=== PATIENT | male | born 1950 | race Caucasian/White ===

== ENCOUNTER 2023-08-02 20:06 | Emergency (ER) | payer OTHER, MEDICARE, SELFPAY ==
[2023-08-02] VITALS (32 sets, daily range): BP systolic 129–170; BP diastolic 50–81; PULSE 46–69; RESP 16; TEMP 36.7; O2SAT 92–98
--- NOTE | 2023-08-02 20:00 | RT.EKG_ITS ---
APPROVED REPORT Exam: Resting ECG Reason for Exam: dizzy Patient Location: E HR:58 bpm ECG Measurements Heart Rate 58 AXIS MA 199 P 39 QRSd 87 QRS -7 QT 444 T 26 QTc 429 Conclusion Sinus bradycardia...rate< 60 Atrial premature complex...SV complex w/ short R-R interval
--- NOTE | 2023-08-02 20:30 | DI.CT_ITS ---
Exam(s) CT HEAD WO EXAM: CT HEAD WO CLINICAL HISTORY: dizziness. TECHNIQUE: Imaging Protocol: Axial computed tomography images with coronal and sagittal reformatted images were created and reviewed COMPARISON: No exams were available for comparison FINDINGS: Ventricles and Extra axial spaces: Normal in size and morphology for the patient's age. Hemorrhage: None. Cerebral parenchyma: There is no evidence of an acute territorial infarct. There are areas of decrea sed attenuation in the white matter suggestive of small vessel ischemic disease. Midline shift: None. Brainstem/Cerebellum: Normal. Calvarium: Normal. Visualized Paranasal sinuses/Mastoids: There findings of chronic sinusitis involving the left maxilla ry sinus. The remaining visualized paranasal sinuses are clear as are the mastoid air cells. Soft Tissues: Unremarkable. IMPRESSION: No acute intracranial process. RADIATION DOSE DELIVERED: 731.11mGy.cm Total DLP DATA REPOSITORY: All CT scans at this facility are submitted to the National Radiology Data Registry (NRDR) Dose Index Registry (DIR) with the [employer] (ACR). RADIATION OPTIMIZATION: All CT scans at this facility use at least one of these dose optimization te chniques: automated exposure control; mA and/or kV adjustment per patient size (includes targeted exa ms where dose is matched to clinical indication); or iterative reconstruction.
--- NOTE | 2023-08-02 20:36 | ED.GENADUL_ITS ---
Discharge Plan Disposition Patient Disposition: Home Condition: Improving Discharge Details Clinical Impression: Pre-syncope, Orthostatic hypotension, Adverse effect of beta-jazmín, Acute hypokalemia Primary Care Provider: [facility] ED Provider: Jose Manuel Sanchez Meds and New Rx's Prescriptions: Continued hydrochlorothiazide 12.5 MG tablet 12.5 mg PO DAILY Qty: 90 aspirin [Aspir-81] 81 MG tablet,delayed release (DR/EC) 81 mg PO DAILY pravastatin 10 MG tablet 10 mg PO QPM Discharge Instructions Instructions: Hypokalemia (ED), Near Syncope (ED) Discharge Data Discharge Physician: Jose Manuel Sanchez Medical Decision Making MDM: Summary: Patient presents to the emergency department stating that he was having episodes of dizziness for the last month but he denies any pain taking twice the metoprolol. Here in the emergency department his heart rate has been in the 50s along he is not experiencing any dizziness. IV fluids given labs were obtained which were only remarkable for hypokalemia. He was given potassium IV and p.o. He feels better Advised to just take the 12.5 mg of metoprolol instead of the 75 mg that he was taking by mistake for years 2 bottles that were sent by the [facility] Data Review Analysis All the data on this patient was reviewed by me including laboratory and imaging studies as well as bedside studies performed by me Independent review of Studies Imaging Chest x-ray was unremarkable Lab: Labs show hypokalemia and mild elevation of creatinine at 1.4 Risk Stratification: Patient most likely with dizziness due to symptomatic bradycardia to to metoprolol toxicity will be discharged home in a stable he was given potassium for hypokalemia feels much better Differential Diagnosis: 1. Symptomatic bradycardia 2.metoprolol toxicity 3. Acute coronary syndrome 4. Dehydration 5. Consultants: Shared disposition: Patient very eager to go home since he instructions he says he feels better and will follow up with his primary care doctor. Impression: Medical Records Medical records reviewed: Yes I reviewed the patient's medical records. Lab Data Lab results reviewed: Yes I reviewed the patient's lab results. ECG Data Attestation: I personally reviewed and interpreted this ECG (s) as follows: Prior ECG tracings: not available for review Interpretation: Sinus bradycardia with a heart rate of [address]-T changes HPI General Date/Time Provider Initiated Documentation: 08/02/23 20:36 . HPI Narrative: Patient who is a [place] [employer] who presented to the emergency department stating that for the last month he has been having episodes of dizziness specially when he bends over and gets up. States that he feels tunnel vision and things kind of try to blackout but he has never had a syncopal episode. Denies any nausea denies any vomiting denies any spinning. Denies any upper or lower extremity focal weakness. Denies any headache. Reports that he takes metoprolol and hydrochlorothiazide plus atorvastatin for high blood pressure. He also did thinks he took another medicine that he got last month probably call the she states that he takes the 3 best medicines mentioned above but he also has a bottle of extra metoprolol which he states that he has been taking for the last month as well. He was unaware that he was taking 2 tablets of metoprolol Related Data Home Medications Medication Instructions Recorded Confirmed aspirin 81 mg tablet,delayed 81 mg PO DAILY 06/27/13 08/02/23 release (Aspir-) pravastatin 10 mg tablet 10 mg PO QPM 06/27/13 08/02/23 hydrochlorothiazide 12.5 mg tablet 12.5 mg PO DAILY #90 tab-caps 11/14/13 08/02/23 Allergies Allergy/AdvReac Type Severity Reaction Status Date / Time No Known Allergies Allergy Unverified 08/02/23 20:16 General Stated Complaint: Dizzy/Sync RAKAN: 3 Review of Systems Narrative: Review of Systems: Constitutional: No fevers, chills, sweats Eye: No recent visual problems ENT: No ear pain, nasal congestion, sore throat Respiratory: No shortness of breath, cough Cardiovascular: No Chest pain, palpitations, syncope Gastrointestinal: No nausea, vomiting, diarrhea Genitourinary: No hematuria Mazin/Lymph: Negative for bruising tendency, swollen lymph glands Endocrine: Negative for excessive thirst, excessive hunger Musculoskeletal: No back pain, neck pain, joint pain, muscle pain, decreased range of motion Integumentary: No rash, pruritus, abrasions Neurologic: Alert & oriented X 4 Psychiatric: No anxiety, depression PFSH All Active Problems (Updated 08/02/23 @ 23:32 by Jose Manuel Sanchez MD) Pre-syncope (Acute) Orthostatic hypotension (Acute) Adverse effect of beta-jazmín (Acute) Acute hypokalemia (Acute) Family History Mother No problems noted. Father , [place] at age 52. Heart disease Sister Hyperlipidemia Brother Hyperlipidemia Grandfather No problems noted. Grandfather No problems noted. Grandmother No problems noted. Grandmother No problems noted. Other Hypertensive disorder, systemic arterial Social History Smoking/Tobacco Use Status: Former Tobacco Use Smoking risk assessment performed?: Yes Drug use: Never Substance use type: does not use Exam Narrative Exam Narrative: Exam; vitals signs as reported hypertensive Constitutional; In no acute distress, afebrile General: cooperative, healthy appearing, comfortable and no acute distress HEENT: Head: normal to inspection, no palpable skull fracture and normocephalic atraumatic Eyes: : appearance normal, both eyes and all related structures EOM intact bilaterally Pupils: PERRL : conjunctiva normal Direct ophthalmoscopy: normal light reflex, normal conjunctiva, normal visual acuity Ears: Normal TM, normal external canal Nose: normal no rhinorreha Neck no JVD, supple non tender Neck: normal visual inspection, full ROM and no lymphadenopathy Chest: normal inspection of the chest Respiratory : normal respiratory effort and able to speak in complete sentences no wheezing no rales Cardio Rate: regular rate, bradycardic rhythm: normal heart sounds S1 and S2 no murmurs, gallops, or rubs GI : normal to inspection, normal bowel sounds, soft, non tender, non distended, no organomegaly Back/Spine/ no CVA tenderness Thoracic/Lumbar Spine: no tenderness or deformities Skin no rashes or lesions Neuro: patient alert oriented x 4 and no meningeal signs, Cranial Nerves: CN's II-XI intact bilaterally, Cognition: normal cognition, Speech: speech normal, Gait: normal gait, Depp tendon reflexes normal 2+ muscle strength 5/5 bilaterally Extremities, no edema, full range of motion, normal strength : normal Rectal: Course Vital Signs Vital signs: Vital Signs Temperature 36.7 C 08/02/23 20:11 Pulse 69 08/02/23 20:11 Respiratory Rate 16 08/02/23 20:11 Blood Pressure 170/80 H 08/02/23 20:11 Pulse Oximetry 95 08/02/23 20:11 Temperature 36.7 C 08/02/23 20:11 Pulse 69 08/02/23 20:11 Respiratory Rate 16 08/02/23 20:11 Respiratory Effort Normal 08/02/23 20:21 Respiratory Depth Normal 08/02/23 20:21 Respiratory Pattern Normal 08/02/23 20:21 Blood Pressure 170/80 H 08/02/23 20:11 Blood Pressure Position Supine 08/02/23 20:11 Pulse Oximetry 95 08/02/23 20:11 Oxygen Delivery Method Room Air 08/02/23 20:11 Oxygen Flow Rate 0 08/02/23 20:11 Pain Level 0 08/02/23 20:11 Vital Signs & Lab Results Vital Signs Most Recent Vital Signs: Most Recent Vital Signs Temp Pulse Resp BP Pulse Ox 36.7 C 54 L 16 138/63 98 08/02/23 20:11 08/02/23 21:49 08/02/23 20:11 08/02/23 21:49 08/02/23 21:50 Point of Care Results Nursing Point of Care Results: No Data to Display Lab Results 08/02/23 20:25 08/02/23 20:25 Blood Type / Crossmatch: No Data to Display Complete Blood Count: White Blood Count 5.43 10^3/uL (4.4-10.8) 08/02/23 20:25 Red Blood Count 4.50 10^6/uL (4.36-5.78) 08/02/23 20:25 Hemoglobin 14.0 g/dL (13.5-17.5) 08/02/23 20:25 Hematocrit 40.4 % (40.0-50.0) 08/02/23 20:25 Platelet Count 248 10^3/uL (130-400) 08/02/23 20:25 Complete Metabolic Panel: Sodium 141 mmol/L (136-145) 08/02/23 20:25 Potassium 2.8 mmol/L (3.5-5.1) L* 08/02/23 20:25 Chloride 102 mmol/L (98-107) 08/02/23 20:25 Carbon Dioxide 27.6 mmol/L (21.0-32.0) 08/02/23 20:25 BUN 21 mg/dL (7-18) H 08/02/23 20:25 Creatinine 1.4 mg/dL (0.70-1.30) H 08/02/23 20:25 Est GFR (CKD-EPI 2021) 53.07 (mL/min/1.73m2) 08/02/23 20:25 Magnesium 1.8 mg/dL (1.8-2.4) 08/02/23 20:25 Calcium 8.8 mg/dL (8.5-10.1) 08/02/23 20:25 Albumin 3.7 g/dL (3.4-5.0) 08/02/23 20:25 Glucose 102 mg/dL (74-106) 08/02/23 20:25 Liver Function Panel: Alanine Aminotransferase (ALT/SGPT) 40 U/L (16-63) 08/02/23 20: 25 Aspartate Amino Transf (AST/SGOT) 32 U/L (15-37) 08/02/23 20:25 Coagulation Panel: No Data to Display Cardiac Panel: Troponin I < 50 ng/L (<or=60) 08/02/23 Arterial Blood Gas: No Data to Display Venous Blood Gas: No Data to Display Pancreas Panel: No Data to Display Thyroid Panel: No Data to Display Infectious Disease: No Data to Display Blood Cultures: No Data to Display Toxicology Panel: No Data to Display
[2023-08-02] MEDS: Normal Saline 1,000 ML 1000 ML IV (20:47)
[2023-08-02 21:02] LABS: Abs Immature Grans 0.02 10^3/uL (0.0-0.06); Absolute Basophil Count 0.03 10^3/uL (0.0-0.2); Absolute Eosinophil Count 0.34 10^3/uL (0.0-0.7); Absolute Monocyte Count 0.65 10^3/uL (0.1-0.8); Absolute Neutrophil Count 3.19 10^3/uL (1.2-6.7); Basophils % 0.6; Eosinophils % 6.3; HCT 40.4 % (40.0-50.0); Immature Grans % 0.4; Lymphocytes % 22.1; MCH 31.1 pg (27.0-33.0); MCHC 34.7 % (32.0-36.0); MCV 90 fL (80-95); MPV 9.7 fL (8.0-11.0); Neutrophils % 58.6; Platelet Count 248 10^3/uL (130-400); RDW 12.8 % (11.8-14.1); RDW-SD 41.9 fL; WBC 5.43 10^3/uL (4.4-10.8)
[2023-08-02 21:20] LABS: ALT 40 U/L (16-63); AST 32 U/L (15-37); Albumin 3.7 g/dL (3.4-5.0); Alkaline Phosphatase 132 U/L (46-116); Anion Gap 11.4 mmol/L (3-11); BUN 21 mg/dL (7-18); Bilirubin, Total 0.6 mg/dL (0.2-1.0); CO2 27.6 mmol/L (21.0-32.0); CREATININE 1.4 mg/dL (0.70-1.30); Calcium 8.8 mg/dL (8.5-10.1); Chloride 102 mmol/L (98-107); Estimated GFR 53.07 (mL/min/1.73m2); Glucose 102 mg/dL (74-106); Magnesium 1.8 mg/dL (1.8-2.4); Sodium 141 mmol/L (136-145); Total Protein 7.4 g/dL (6.4-8.2); Troponin I < 50 ng/L (<or=60)
[2023-08-02 21:25] LABS: Potassium 2.8 mmol/L (3.5-5.1)
--- NOTE | 2023-08-02 22:11 | DI.VRAD_ITS ---
PROCEDURE INFORMATION: Exam: CT Head Without Contrast Exam date and time: 08/02/2023 9:44 PM Age: 73 years old Clinical indication: Dizziness TECHNIQUE: Imaging protocol: Computed tomography of the head without contrast. COMPARISON: No relevant prior studies available. FINDINGS: Brain: There is mild diffuse heterogeneity of the white matter attenuation, consistent with chronic white matter microangiopathic ischemic changes. There is mild diffuse cerebral atrophy present. There is no evidence of intracranial hemorrhage. There is no evidence of acute intracranial injury or other pathologic process. There is no evidence of an acute ischemic event. Cerebral ventricles: The ventricular system demonstrates mild diffuse compensatory enlargement. Paranasal sinuses: Mucoperiosteal thickening consistent with severe left chronic sinusitis. No air-fluid levels to suggest evidence of acute sinusitis. Mastoid air cells: The mastoid aircells are normal. Orbital cavities: The orbits are normal without evidence of fracture. There is no evidence of retro-bulbar hemorrhage. There is no evidence of globe or lens injury. Bones/joints: The bony cranium shows no evidence of injury or other acute pathologic processes. Soft tissues: The extracranial soft tissues are normal. IMPRESSION: 1. No evidence of an acute intracranial abnormality. 2. There is mild age-related atrophy and chronic white matter ischemic changes, with compensatory ventricular dilation. 3. Mucoperiosteal thickening consistent with severe left chronic sinusitis. No air-fluid levels to suggest evidence of acute sinusitis. Dictated and Authenticated by: Julian Smith MD. Ordering:MUSA Richard MD
[2023-08-02] MEDS: POTASSIUM CHLORIDE 10 MEQ/100 ML BAG 100 MEQ IVPB (22:25)
[2023-08-02] MEDS: Potassium Chloride 20 MEQ TABCR 40 MEQ PO (23:40)
[2023-08-03 00:03] VITALS: BP 146/65; PULSE 51; RESP 16; TEMP 36.7; O2SAT 94
== END 2023-08-03 00:02 | disposition home or self-care (01) ==
PROVIDERS: Emergency Provider Emergency Medicine Emergency Medical Services
DX: R55 Syncope and collapse; I95.2 Hypotension due to drugs; T44.7X5A Adverse effect of beta-adrenoreceptor antagonists, initial encounter; E87.6 Hypokalemia; R00.1 Bradycardia, unspecified
CPT/HCPCS: 80053; 93005; 96361; 96365; 96366; 99285; 70450; 83735; 84484; 85025; 93010; 99284; J3480

== ENCOUNTER 2023-12-01 10:36 | Emergency (ER) | payer OTHER, SELFPAY ==
[2023-12-01 10:41] VITALS: BP 157/78; PULSE 56; RESP 18; TEMP 36.6; O2SAT 98
[2023-12-01 11:15] VITALS: BP 157/78; PULSE 56; RESP 18; TEMP 36.6; O2SAT 98
[2023-12-01 11:50] LABS: Anion Gap 4.1 mmol/L (3-11); BUN 20 mg/dL (7-18); CO2 31.9 mmol/L (21.0-32.0); CREATININE 1.3 mg/dL (0.70-1.30); Calcium 9.7 mg/dL (8.5-10.1); Chloride 105 mmol/L (98-107); Estimated GFR 58.01 (mL/min/1.73m2); Glucose 127 mg/dL (74-106); Potassium 3.9 mmol/L (3.5-5.1); Sodium 141 mmol/L (136-145)
--- NOTE | 2023-12-01 11:59 | W.ED.GENAD ---
HPI General Stated Complaint: RespSymp Mode of arrival: ambulatory. RAKAN: 4 Date/Time Provider Initiated Documentation: 12/01/23 10:45. Limitations to Documentation: no limitations. Information obtained by: patient and RN notes reviewed. History of Present Illness Cough, sneezing mild day(s) (1) constant No relieving factors improve symptom(s), No exacerbating factors reported no other symptoms. none Related Data Home Medications Medication Instructions Recorded Confirmed aspirin 81 mg tablet,delayed 81 mg PO DAILY 06/27/13 08/02/23 release (Aspir-) pravastatin 10 mg tablet 10 mg PO QPM 06/27/13 08/02/23 hydrochlorothiazide 12.5 mg tablet 12.5 mg PO DAILY #90 tab-caps 11/14/13 08/02/23 nirmatrelvir 150 mg-ritonavir 100 See Rx Instructions PO .COMPLEX 12/01/23 mg tablets in a dose pack #20 dose pk (Paxlovid) Previous Rx's Medication Instructions Recorded nirmatrelvir 150 mg-ritonavir 100 See Rx Instructions PO .COMPLEX 12/01/23 mg tablets in a dose pack #20 dose pk (Paxlovid) Allergies Allergy/AdvReac Type Severity Reaction Status Date / Time No Known Allergies Allergy Unverified 12/01/23 10:43 Review of Systems Constitutional Constitutional: Denies chills, Denies fever(s), Denies headache(s) and Denies lethargy ENT Ears, Nose, Mouth, and Throat: Denies headache(s), Denies nasal congestion, Denies sore throat and Reports other (Sneezing) Cardiovascular Cardiovascular: Denies chest pain and Denies dyspnea Respiratory Respiratory: Reports cough and Denies dyspnea Gastrointestinal Gastrointestinal: Denies abdominal pain, Denies diarrhea, Denies nausea and Denies vomiting Integumentary/Breasts Skin/Breast: Denies rash Neurologic Neurologic: Denies headache(s) PFSH All Active Problems COVID (Acute) Medical History Hyperlipidemia (01/28/13) Essential hypertension (11/14/13) Family History Mother No problems noted. Father , [place] at age 52. Heart disease Sister Hyperlipidemia Brother Hyperlipidemia Grandfather No problems noted. Grandfather No problems noted. Grandmother No problems noted. Grandmother No problems noted. Other Hypertensive disorder, systemic arterial Social History Smoking/Tobacco Use Status: Former Tobacco Use Smoking risk assessment performed?: Yes Drug use: Never Substance use type: does not use Exam Const General: cooperative, comfortable and no acute distress Orientation: alert and awake HENMT Head: normal to inspection, normocephalic and atraumatic Ears: hearing grossly normal bilaterally and TM's normal bilaterally General nose exam: external nose normal Face and sinus: no erythema Mouth: oral mucosae normal, no drooling, no muffled voice and no trismus Throat: posterior oropharynx normal Neck Neck: normal visual inspection, full ROM, no lymphadenopathy, no meningeal signs, trachea midline and supple Resp Effort & Inspection: normal respiratory effort and able to speak in complete sentences Auscultation: clear to auscultation bilaterally Cardio Rate: regular rate Rhythm: regular rhythm Heart Sounds: S1 normal, S2 normal, normal S1 and S2, no click, no gallops, no murmurs and no rubs Skin General skin exam: no rashes or lesions noted and dry skin (warm) Neuro General: patient alert, patient awake, patient oriented x3, gait normal and moves all extremities Cognition: normal cognition Speech: speech normal Course Vital Signs Vital signs: Vital Signs Temperature 36.6 C 12/01/23 10:41 Pulse 56 L 12/01/23 10:41 Respiratory Rate 18 12/01/23 10:41 Blood Pressure 157/78 H 12/01/23 10:41 Pulse Oximetry 98 12/01/23 10:41 Temperature 36.6 C 12/01/23 11:15 Temperature Source Temporal Artery Scan 12/01/23 11:15 Pulse 56 L 12/01/23 11:15 Respiratory Rate 18 12/01/23 11:15 Respiratory Effort Normal 12/01/23 11:17 Respiratory Depth Normal 12/01/23 11:17 Blood Pressure 157/78 H 12/01/23 11:15 Blood Pressure Position Supine 12/01/23 11:15 Pulse Oximetry 98 12/01/23 11:15 Oxygen Delivery Method Room Air 12/01/23 11:15 Oxygen Flow Rate 0 12/01/23 11:15 Lab/Test Results Lab/Test Results: Laboratory Tests Range/Units 12/01/23 11:30 Sodium (136-145) mmol/L 141 Potassium (3.5-5.1) mmol/L 3.9 Chloride (98-107) mmol/L 105 Carbon Dioxide (21.0-32.0) mmol/L 31.9 Anion Gap (3-11) mmol/L 4.1 BUN (7-18) mg/dL 20 H Creatinine (0.70-1.30) mg/dL 1.3 Est GFR (CKD-EPI 2020) (mL/min/1.73m2) 58.01 Glucose (74-106) mg/dL 127 H Calcium (8.5-10.1) mg/dL 9.7 Medical Decision Making Patient presenting to the clinic for chief complaint of cold symptoms. He does report that he tested positive for COVID this morning and due to having significant COVID illness in the past is here due to family members requesting that he be prescribed antiviral therapy. Patient does report that he is fully vaccinated and up-to-date on boosters for COVID. patient reports symptoms have been going on for the past 1 day. reports dry cough and sneezing otherwise states that he feels good. Physical exam shows shows unremarkable HEENT exam, otherwise clear lung sounds and otherwise unremarkable exam. Vital signs show no hypoxia, tachycardia, tachypnea, and patient is afebrile. Patient has no signs of meningitis, peritonsillar abscess, retropharyngeal abscess, Shashank's angina, or life-threatening Airway infection. Reviewed previous labs and patient did have some slight decrease of renal function so repeated basic metabolic panel which shows GFR less than 60. Patient placed on renal dosing for Paxlovid and informed to hold statin while on medication. Otherwise conservative management discussed along with follow-up and return precautions. After discussion of diagnosis and plan of care patient has no further needs, questions, or concerns and states clear understanding to return to the emergency department for any worsening symptoms. This documentation was generated using [employer] system, please disregard any oddities of phrase or misspellings. Medical Records Medical records reviewed: Yes I reviewed the patient's medical records. Lab Data Lab results reviewed: Yes I reviewed the patient's lab results. Quality:SDOH Health Related Social Needs: No Data to Display Discharge Plan Disposition Patient Disposition: Home Condition: Stable Discharge Details Clinical Impression: COVID Primary Care Provider: Brianna,Local ED Provider: Quique Berrios Home Meds and New Rx's Prescriptions: New Paxlovid 150-100 mg tablets,dose pack See Rx Instructions .ROUTE .COMPLEX Qty: 20 0RF Rx Instructions: orally per package directions Continued hydrochlorothiazide 12.5 MG tablet 12.5 mg PO DAILY Qty: 90 aspirin [Aspir-81] 81 MG tablet,delayed release (DR/EC) 81 mg PO DAILY Held pravastatin 10 MG tablet 10 mg PO QPM Hold Instructions: Hold until 2 days after you have finished the Paxlovid Discharge Instructions Instructions: COVID-19 (Coronavirus Disease 2019) (ED) Additional Instructions: Continue to stay well-hydrated and get plenty of rest during viral illness. Please hold your statin until 2 days after you have finished the antiviral COVID medication. Return the emergency department for any new or significant worsening of symptoms otherwise follow-up with your primary care provider as needed. Referrals: [facility] [Outside] (As needed for reassessment) Discharge Data Discharge Date/Time-TO BE ENTERED AT DEPARTURE: 12/01/23 12:11
== END 2023-12-01 12:11 | disposition home or self-care (01) ==
PROVIDERS: Emergency Provider Nurse Practitioner Family
DX: U07.1 COVID-19 (principal); R05.1 Acute cough
CPT/HCPCS: 80048; 99283